=== PATIENT | female | born 1990 | race Caucasian/White ===

== ENCOUNTER → 2016-09-07 | Outpatient (CLI) | payer OTHER ==
--- NOTE | 2016-09-07 22:05 | US ---
EXAMINATION TYPE: US thyroid st tissue head/neck DATE OF EXAM: 09/07/2016 3:35 PM COMPARISON: NONE CLINICAL HISTORY: 26-year-old female Z13.39 SCREENING FOR OTHER SUSPECTED ENDOCRINE DISORDER. Thyroid omegaly and weight gain. TECHNIQUE: Multiple sonographic images of the thyroid gland are obtained. FINDINGS: GLAND SIZE: Right Lobe: 5.8 x 2.6 x 1.5cm Overall Parenchyma: homogeneous Left Lobe: 5.3 x 1.9 x 1.5 cm Overall Parenchyma: homogeneous Isthmus Thickness: 0.2cm NODULES RIGHT: # of nodules measured on right: 0 LEFT: # of nodules measured on left: 1 1. 0.7 X 0.5 x 0.4 cm hypoechoic circumscribed nodule at the mid pole with well-defined margins; pre sent with central calcification. This nodule is wider than tall and shows no intranodular vascularity . Prior size: [employer] ISTHMUS: # of nodules measured in the isthmus: 0 Bilateral neck scanned, no abnormal lymphadenopathy noted. IMPRESSION: 1. Thyromegaly with measurements as above. 2. Solitary 7 mm nodule in the left midpole, possible colloid cyst.
== END ==
LOC: RADUSWWP 15:22
PROVIDERS: ATTEND Internal Medicine
DX: Z13.29 Encounter for screening for other suspected endocrine disorder (principal); E01.0 Iodine-deficiency related diffuse (endemic) goiter; E04.1 Nontoxic single thyroid nodule
CPT/HCPCS: 76536

== ENCOUNTER 2017-01-16 17:50 | Emergency (ER) | payer OTHER ==
[2017-01-16] MEDS ORDERED: SODIUM CHLORIDE 0.9% 1,000 ML IV STA ×2 (17:56)
[2017-01-16 17:57] VITALS: TEMP 98.2
--- NOTE | 2017-01-16 18:00 | ED ---
Arrhythmia/Palpitations HPI - General Stated Complaint: palpitations Time Seen by Provider: 01/16/17 17:50 Source: patient, RN notes reviewed Mode of arrival: EMS Limitations: no limitations - History of Present Illness Initial Comments: This a 26-year-old female history anxiety as well as irregular heartbeats with PVCs who was at work when she started developing an irregular heartbeat and the feeling of chest tightness. She was very anxious at the time and now feels back to normal. Of note she was prescribed a beta sravan and has not yet gotten the prescription filled but this was over last month or more. She does admit that she was out drinking last night and having multiple drinks and also drinking iced coffee this morning. She uses no other stimulants however. She does not smoke cigarettes. She currently is symptom free. His other complaints at this time she denies any chance being she had her last menstrual period December 21. MD Complaint: rapid heart beat, palpitations - Related Data Home Medications Medication Instructions Recorded Confirmed ALPRAZolam [Xanax] 0.25 mg PO TID PRN 01/16/17 01/16/17 Allergies Allergy/AdvReac Type Severity Reaction Status Date / Time cephalexin monohydrate Allergy Rash/Hives Verified 01/16/17 18:30 [From Keflex] Penicillins Allergy Rash/Hives Verified 01/16/17 18:30 Review of Systems ROS Statement: Those systems with pertinent positive or pertinent negative responses have been documented in the HPI. ROS Other: All systems not noted in ROS Statement are negative. Past Medical History Past Medical History: No Reported History Additional Past Medical History / Comment(s): frequent uti's, has one other child that is 4 years old with no complications during that . History of Any Multi-Drug Resistant Organisms: None Reported Past Surgical History: No Surgical Hx Reported Additional Past Surgical History / Comment(s): dental surgery Past Anesthesia/Blood Transfusion Reactions: No Reported Reaction Past Psychological History: Anxiety Smoking Status: Never smoker Past Alcohol Use History: Occasional Past Drug Use History: None Reported - Past Family History Father Family Medical History: No Reported History Additional Family Medical History / Comment(s): Father by suicide with history of mental health illness when the patient was age 11. Mother Family Medical History: No Reported History Additional Family Medical History / Comment(s): Mother is alive at age 52 with history of tia's, stroke (aneurysm?), "blood clots in legs." Sister(s) Family Medical History: No Reported History Additional Family Medical History / Comment(s): She has one sister with history of Wilms tumor as a child and currently healthy. Patient has 1 daughter which is healthy. General Exam - General Exam Comments Initial Comments: This is a well-developed well-nourished awake alert oriented 3 female Limitations: no limitations General appearance: alert, in no apparent distress Head exam: Present: atraumatic, normocephalic, normal inspection Eye exam: Present: normal appearance, PERRL, EOMI. Absent: scleral icterus, conjunctival injection, periorbital swelling ENT exam: Present: normal exam, mucous membranes moist Neck exam: Present: normal inspection. Absent: tenderness, meningismus, lymphadenopathy Respiratory exam: Present: normal lung sounds bilaterally. Absent: respiratory distress, wheezes, rales, rhonchi, stridor Cardiovascular Exam: Present: regular rate, normal rhythm, normal heart sounds. Absent: systolic murmur, diastolic murmur, rubs, gallop, clicks GI/Abdominal exam: Present: soft, normal bowel sounds. Absent: distended, tenderness, guarding, rebound, rigid Extremities exam: Present: normal inspection, full ROM, normal capillary refill. Absent: tenderness, pedal edema, joint swelling, calf tenderness Back exam: Present: normal inspection Neurological exam: Present: alert, oriented X3, CN II-XII intact Psychiatric exam: Present: normal affect, normal mood Skin exam: Present: warm, dry, intact, normal color. Absent: rash Course Vital Signs 01/16/17 01/16/17 17:52 18:45 Temperature 98.2 F Pulse Rate 70 70 Respiratory 18 18 Rate Blood Pressure 146/60 O2 Sat by Pulse 99 100 Oximetry EKG Findings - EKG Results: EKG: interpreted by ERMD, sinus rhythm (Sinus rhythm with a rate of 68 RI interval 132 QRS of 86 QT since QTC of 386/410 middle also criteria for LVH. ST -T wave changes since correlate with the EMS 12 leads.) Medical Decision Making - Medical Decision Making I did discuss the findings with the patient she remains asymptomatic. The patient will be discharged we did discuss caffeine consumption including [employer] coffee etc. Patient will get her prescription for her beta sravan filled. She'll follow-up with her doctor and return when necessary thousand recommend staying well-hydrated. - Lab Data Result diagrams: 01/16/17 18:05 01/16/17 18:05 Lab Results 01/16/17 01/16/17 01/16/17 Range/Units 18:05 18:05 18:05 WBC 9.4 (3.8-10.6) k/uL RBC 4.63 (3.80-5.40) m/uL Hgb 13.6 (11.4-16.0) gm/dL Hct 39.1 (34.0-46.0) % MCV 84.4 (80.0-100.0) fL MCH 29.3 (25.0-35.0) pg MCHC 34.7 (31.0-37.0) g/dL RDW 14.0 (11.5-15.5) % Plt Count 253 (150-450) k/uL Neutrophils % 52 % Lymphocytes % 39 % Monocytes % 5 % Eosinophils % 2 % Basophils % 0 % Neutrophils # 4.8 (1.3-7.7) k/uL Lymphocytes # 3.6 (1.0-4.8) k/uL Monocytes # 0.5 (0-1.0) k/uL Eosinophils # 0.2 (0-0.7) k/uL Basophils # 0.0 (0-0.2) k/uL Sodium 139 (137-145) mmol/L Potassium 3.5 (3.5-5.1) mmol/L Chloride 106 (98-107) mmol/L Carbon Dioxide 20 L (22-30) mmol/L Anion Gap 13 mmol/L BUN 15 (7-17) mg/dL Creatinine 0.60 (0.52-1.04) mg/dL Est GFR (MDRD) Af Amer >60 (>60 ml/min/1.73 sqM) Est GFR (MDRD) Non-Af >60 (>60 ml/min/1.73 sqM) Glucose 94 (74-99) mg/dL Calcium 9.5 (8.4-10.2) mg/dL Magnesium 1.7 (1.6-2.3) mg/dL Total Bilirubin 0.3 (0.2-1.3) mg/dL AST 16 (14-36) U/L ALT 29 (9-52) U/L Alkaline Phosphatase 50 (38-126) U/L Total Creatine Kinase 108 (30-135) U/L CK-MB (CK-2) 1.4 (0.0-2.4) ng/mL CK-MB (CK-2) Rel Index 1.3 Troponin I <0.012 (0.000-0.034) ng/mL Total Protein 7.1 (6.3-8.2) g/dL Albumin 4.1 (3.5-5.0) g/dL - Radiology Data Radiology results: report reviewed (I did review the imaging and report no acute findings.), image reviewed Disposition Clinical Impression: Palpitations Disposition: HOME SELF-CARE Condition: Good Instructions: Palpitations (ED) Referrals: Josh Albert MD [Primary Care Provider] - 1-2 days
[2017-01-16 18:17] LABS: Basophils % (A) 0 %; CH 29.7; CHCM 35.3; Eosinophils # (A) 0.2 k/uL (0-0.7); Eosinophils % (A) 2 %; HCT 39.1 % (34.0-46.0); HGB 13.6 gm/dL (11.4-16.0); Luc # (Auto) 0.19; Luc % (Auto) 2; Lymphocytes # (A) 3.6 k/uL (1.0-4.8); Lymphocytes % (A) 39 %; MCH 29.3 pg (25.0-35.0); MCHC 34.7 g/dL (31.0-37.0); MCV 84.4 fL (80.0-100.0); Monocytes # (A) 0.5 k/uL (0-1.0); Monocytes % (A) 5 %; Neutrophils # (A) 4.8 k/uL (1.3-7.7); Neutrophils % (A) 52 %; RBC 4.63 m/uL (3.80-5.40); WBC 9.4 k/uL (3.8-10.6); WBC (Perox) 9.47
--- NOTE | 2017-01-16 18:26 | XR ---
EXAMINATION TYPE: XR chest 2V DATE OF EXAM: 01/16/2017 2 views the chest were obtained. COMPARISON: NONE HISTORY: Palpitations with chest and throat tightness. TECHNIQUE: Frontal and lateral views of the chest are obtained. FINDINGS: There is no focal air space opacity, pleural effusion, or pneumothorax seen. The cardiac silhouette size is within normal limits. The osseous structures are intact. IMPRESSION: No acute cardiopulmonary process.
[2017-01-16 18:35] LABS: ALT 29 U/L (9-52); AST 16 U/L (14-36); Alkaline Phosphatase 50 U/L (38-126); Anion Gap 13 mmol/L; Blood Urea Nitrogen 15 mg/dL (7-17); Calcium 9.5 mg/dL (8.4-10.2); Carbon Dioxide 20 mmol/L (22-30); Chloride 106 mmol/L (98-107); Glucose 94 mg/dL (74-99); Magnesium 1.7 mg/dL (1.6-2.3); Non-African American GFR(MDRD) >60 (>60 ml/min/1.73 sqM); Potassium 3.5 mmol/L (3.5-5.1); Sodium 139 mmol/L (137-145); Total Bilirubin 0.3 mg/dL (0.2-1.3); Total Protein 7.1 g/dL (6.3-8.2)
[2017-01-16 18:41] LABS: Creatine Kinase 108 U/L (30-135)
[2017-01-16 18:54] LABS: Creatine Kinase MB 1.4 ng/mL (0.0-2.4); Troponin I <0.012 ng/mL (0.000-0.034)
[2017-01-16 19:28] VITALS: BP 121/60; PULSE 86; RESP 16
== END 2017-01-16 19:27 | disposition home or self-care (01) ==
LOC: EC 17:50
DX: R00.2 Palpitations (principal); Z88.0 Allergy status to penicillin; Z88.1 Allergy status to other antibiotic agents
CPT/HCPCS: 36415; 71020; 80053; 82550; 82553; 83735; 84484; 85025; 93005; 96360; 99285

== ENCOUNTER → 2017-11-03 | Outpatient (CLI) | payer OTHER ==
--- NOTE | 2017-11-03 11:26 | US ---
EXAMINATION TYPE: US thyroid st tissue head/neck DATE OF EXAM: 11/03/2017 COMPARISON: NONE CLINICAL HISTORY: 27-year-old female Thyroid Nodule, E04.1. Follow up thyroid nodule TECHNIQUE: Multiple sonographic images of the thyroid gland are obtained. FINDINGS: GLAND SIZE: Right Lobe: 5.0 x 1.4 x 2.2 cm Overall Parenchyma: homogenous Left Lobe: 4.8 x 1.3 x 2.0 cm Overall Parenchyma: homogeneous Isthmus Thickness: 0.2 cm NODULES RIGHT: # of nodules measured on right: 0 LEFT: # of nodules measured on left: 2 1. 0.8 X 0.6 x 0.4 cm hypoechoic nodule at the mid pole with well-defined margins; central calcifica tion noted. This nodule is wider than tall and shows no intranodular vascularity. Suspected colloid cyst. Prior size: 0.7 x 0.5 x 0.4 cm 2. 0.6 X 0.3 x 0.4 cm hypoechoic nodule at the upper pole with well-defined margins; central calcifi cation noted. This nodule is wider than tall and shows no intranodular vascularity. Suspected colloi d cyst. Prior size: not noted on prior exam ISTHMUS: # of nodules measured in the isthmus: 0 Bilateral neck scanned, no evidence of lymphadenopathy. IMPRESSION: 2 nodules on the left measuring up to 8 mm are suspected to represent benign colloid cysts. One of th eloisa nodules is new. The larger 8 mm nodule is relatively stable compared to 7 mm, previously.
== END | disposition home or self-care (01) ==
LOC: RADUSWWP 10:14
PROVIDERS: ATTEND Internal Medicine
DX: E04.2 Nontoxic multinodular goiter (principal)
CPT/HCPCS: 76536

== ENCOUNTER → 2018-11-09 | Outpatient (CLI) | payer OTHER ==
--- NOTE | 2018-11-10 07:13 | US ---
EXAMINATION TYPE: US thyroid st tissue head/neck DATE OF EXAM: 11/09/2018 COMPARISON: US 2018 CLINICAL HISTORY: E04.1 Thyroid nodule. Nontoxic single thyroid nodule. GLAND SIZE: Right Lobe: 5.2 x 2.0 x 1.6 cm Overall Parenchyma: homogenous Left Lobe: 5.1 x 1.9 x 1.6 cm Overall Parenchyma: homogeneous Isthmus Thickness: 0.29 cm NODULES RIGHT: # of nodules measured on right: 0 LEFT: # of nodules measured on left: 2 1. 0.8 X 0.5 x 0.5 cm hypoechoic nodule at the mid pole with well-defined margins; internal colloid . This nodule is as tall as it is wide and shows no intranodular vascularity. Prior size: 0.8 x 0.6 x 0.4 cm 2. 0.7 X 0.4 x 0.4 cm hypoechoic nodule at the upper pole with well-defined margins; internal colloi d. This nodule is as tall as it is wide and shows no intranodular vascularity. Prior size: 0.6 x 0.3 x 0.4 cm. ISTHMUS: # of nodules measured in the isthmus: 0 IMPRESSION: Similar size of the benign colloid cysts in a mildly enlarged thyroid gland.
== END | disposition home or self-care (01) ==
LOC: RADUSWWP 16:48
PROVIDERS: ATTEND Internal Medicine
DX: E04.1 Nontoxic single thyroid nodule (principal)
CPT/HCPCS: 76536